=== PATIENT | female | born 1960 | race Caucasian/White ===

== ENCOUNTER → 2025-03-04 | Outpatient (CLI) | payer BC | END | disposition home or self-care (01) | LOC: MAMMO 10:04 | DX: C50.512 Malignant neoplasm of lower-outer quadrant of left female breast (principal); N63.10 Unspecified lump in the right breast, unspecified quadrant; R92.331 Mammographic heterogeneous density, right breast; R92.1 Mammographic calcification found on diagnostic imaging of breast; Z85.3 Personal history of malignant neoplasm of breast; Z90.12 Acquired absence of left breast and nipple | CPT/HCPCS: 77061; 77062; 77065; G0279 ==